=== PATIENT | male | born 1945 | race Caucasian/White ===

== ENCOUNTER 2023-03-20 09:03 | Observation (INO) | payer MEDICARE, OTHER, SELFPAY ==
[2023-03-20] VITALS (16 sets, daily range): BP systolic 124–162; BP diastolic 60–77; PULSE 59–66; RESP 16–36; TEMP 36.7–37.2; O2SAT 91–98; BMI 28.3
[2023-03-20 09:41] LABS: Add Manual Diff / Slide Review NO; Basophils Absolute Auto 0 /uL (0-100); Basophils Percent Auto 0.2 % (0-2); Eosinophils Absolute Auto 200 /uL (0-450); Eosinophils Percent Auto 1.9 % (2-4); Hemoglobin 14.2 g/dL (13.5-17.5); Lymphocytes Absolute Auto 1300 /uL (1100-4500); Lymphocytes Percent Auto 14.1 % (25-40); Mean Corpuscular HGB Conc 33.9 % (30-36); Mean Corpuscular Hemoglobin 31.3 PG (26-34); Mean Corpuscular Volume 92.3 fL (80-100); Monocytes Absolute Auto 900 /uL (0-900); Monocytes Percent Auto 9.9 % (3-14); Neutrophils Absolute Auto 6700 /uL (1500-7000); Neutrophils Percent Auto 73.9 % (50-75); Platelet Count 128 X10^3/uL (150-400); Red Blood Cell Count 4.55 X10^6/uL (4.5-5.9); Red Cell Distribution Width 14.5 % (11.6-14.8); White Blood Cell Count 9.1 X10^3/uL (4.5-11.0)
[2023-03-20 09:51] LABS: Alanine Aminotransferase 30 IU/L (<50); Albumin Globulin Ratio 1.4 (1.0-2.8); Alkaline Phosphatase 50 U/L (38-126); Aspartate Aminotransferase 24 IU/L (17-59); BUN Creatinine Ratio 18.6 (6-22); Bilirubin Total 1.8 mg/dL (0.2-1.3); Blood Urea Nitrogen 18 mg/dL (9-20); Calcium 9.3 mg/dL (8.4-10.2); Carbon Dioxide 31 mmol/L (22-32); Chloride 102 mmol/L (98-107); Estimated Glomerular Filt Rate > 60 mL/min (>60); Globulin 2.8 g/dL (1.7-4.1); Glucose 139 mg/dL (80-110); HEMOLYSIS < 15 (0-50); Lipase 53 U/L (23-300); Potassium 3.7 mmol/L (3.4-5.1); Sodium 139 mmol/L (137-145); Total Protein 6.8 g/dL (6.3-8.2)
--- NOTE | 2023-03-20 10:00 | ED_ITS ---
HPI - Abdominal Pain General Chief Complaint: Abdominal Pain Stated Complaint: R/low ABD pain/ sent by PCP Time Seen by Provider: 03/20/23 09:06 Source: patient Mode of arrival: Ambulatory History of Present Illness HPI narrative: 77-year-old male presents with right lower quadrant pain and nausea for the past few days. He states the symptoms have been gradually worsening and though nauseated he has not vomited and denies any obvious fever or shaking chills. His appetite seems to be relatively okay and he admits to having relatively regular soft bowel movements. He has worsening right lower quadrant pain that is worse when he moves and improves with rest. He denies obvious radiation of his pain and has no urinary complaints. He called his primary care provider and was instructed to present here for evaluation. He does have a pacemaker and is on Eliquis. He denies any prior surgeries on his abdomen Related Data Home Medications Medication Instructions Recorded Confirmed apixaban 5 mg tablet (Eliquis) 5 mg PO BID 03/20/23 03/20/23 aspirin 81 mg tablet,delayed 81 mg PO BEDTIME 03/20/23 03/20/23 release atorvastatin 40 mg tablet 40 mg PO BEDTIME 03/20/23 03/20/23 furosemide 20 mg tablet 20 mg PO DAILY 03/20/23 03/20/23 loratadine 10 mg tablet (Claritin) 10 mg PO BID 03/20/23 03/20/23 losartan 50 mg tablet 25 mg PO DAILY 03/20/23 03/20/23 methocarbamol 500 mg tablet 500 mg PO TID PRN Pain (Scale 03/20/23 03/20/23 Score 1-3) metoprolol succinate 50 mg 50 mg PO BID 03/20/23 03/20/23 tablet,extended release 24 hr multivit with minerals-iron 18 1 tab PO BEDTIME 03/20/23 03/20/23 mg-folic ac 400 mcg-vit K 25 mcg tablet (Adults Multivitamin) omega-3 fatty acids 1,000 mg PO DAILY 03/20/23 03/20/23 potassium citrate 10 mEq (1,080 10 meq PO BID 03/20/23 03/20/23 mg) tablet,extended release sotalol 80 mg tablet 80 mg PO BID 03/20/23 03/20/23 vitamin B complex (B 1 tab PO BEDTIME 03/20/23 03/20/23 Complex-Vitamin B12 tablet) Allergies Allergy/AdvReac Type Severity Reaction Status Date / Time carvedilol Allergy Mild Verified 03/20/23 09:17 Review of Systems Review of Systems Narrative: GENERAL: Denies chills, fatigue, malaise, fever, sweats. HEENT: Denies sinus pain, ear pain, sore throat, difficulty swallowing, dizziness. RESPIRATORY: Denies dyspnea, cough, wheezing, hemoptysis, sputum. CARDIOVASCULAR: Denies chest pain, palpitations, orthopnea, edema, GASTROINTESTINAL: See HPI : Denies dysuria, frequency, incontinence, hematuria, urinary retention. MUSCULOSKELETAL: denies weakness, joint pain, or bony pain SKIN: Denies rash, skin lesions, or other NEUROLOGIC: Denies weakness, headache, numbness, change in speech, confusion, seizures, incoordination. PSYCHIATRIC: No concerning psychosocial issues. 12 point review of systems is negative except for those stated above Patient History Social History household members: spouse Smoking Status: Never smoker alcohol intake: current Smoking Status: Never smoker alcohol intake frequency: 0-2 drinks per day Substance Use Type: does not use Exam Narrative Exam Narrative: GENERAL: [77] year old patient appears stated age. Well-developed patient, in mild distress. HEAD: Atraumatic. Normocephalic. EYES: Pupils equal round and reactive. Extraocular motions intact. No scleral icterus. No injection or drainage. ENT: Nose without bleeding, purulent drainage. Throat without erythema, tonsillar hypertrophy or exudate. Airway patent. NECK: Trachea midline. Non tender CARDIOVASCULAR: Regular rate and rhythm without murmurs, gallops, or rubs. RESPIRATORY: Clear to auscultation. Breath sounds equal bilaterally. No wheezes, rales, or rhonchi. GASTROINTESTINAL: Abdomen soft, tender with guarding in the right lower quadrant, negative heel tap, psoas, negative Rovsing's., nondistended. Patient examined while standing, no evidence of inguinal hernia EXTREMITIES: No edema or joint tenderness. BACK: Nontender without deformity or crepitance. No flank tenderness. NEURO: AOx3. SKIN: No rash or erythema of visible areas Initial Vital Signs Initial Vital Signs: Vital Signs Temperature 98.6 F 03/20/23 09:11 Pulse Rate 65 03/20/23 09:11 Respiratory Rate 18 03/20/23 09:11 Blood Pressure 154/67 H 03/20/23 09:11 Pulse Oximetry 98 03/20/23 09:11 Oxygen Delivery Method Room Air 03/20/23 09:11 Course Orders Ordered: Acetaminophen (Acetaminophen 325 Mg Tablet) 650 mg PO Q6H PRN PRN Reason: Fever/Mild Pain (1-3) Atorvastatin Calcium (Atorvastatin 20 Mg Tablet) 40 mg PO BEDTIME [facility] Last Admin: 03/20/23 20:56 Dose: 40 mg Documented By: AT Furosemide (Furosemide 20 Mg Tablet) 20 mg PO DAILY [facility] Last Admin: 03/20/23 17:14 Dose: 20 mg Documented By: BV Hydromorphone HCl (Hydromorphone 0.5 Mg Inj) 0.5 mg IV Q4H PRN PRN Reason: Pain, Moderate (4-6) Piperacillin Sod/Tazobactam (Sod 3.375 gm/ Sodium Chloride) 100 mls @ 25 mls/hr IV Q8H [facility] Last Infusion: 03/21/23 04:18 Dose: 0 mls/hr Documented By: Admin: 03/21/23 00:17 Dose: 25 mls/hr Documented By: AT Loratadine (Loratadine 10 Mg Tablet) 10 mg PO BID [facility] Last Admin: 03/20/23 20:57 Dose: 10 mg Documented By: AT Losartan Potassium (Losartan 50 Mg Tablet) 25 mg PO DAILY [facility] Melatonin (Melatonin 3 Mg Tablet) 6 mg PO BEDTIME PRN PRN Reason: Insomnia Methocarbamol (Methocarbamol 500 Mg Tablet) 500 mg PO TID PRN PRN Reason: Pain (Scale Score 1-3) Metoprolol Succinate (Metoprolol Er 50 Mg Tablet) 50 mg PO BID [facility] Last Admin: 03/20/23 20:56 Dose: 50 mg Documented By: AT Naloxone HCl (Naloxone 0.4 Mg/Ml Vial) 0.2 mg IV Q2MIN PRN PRN Reason: Opiate Reversal Ondansetron HCl (Ondansetron 4 Mg Odt) 4 mg PO NOW PRN PRN Reason: Nausea And Vomiting Ondansetron HCl (Ondansetron 4 Mg/2 Ml Inj) 4 mg IV NOW PRN PRN Reason: Nausea And Vomiting Oxycodone HCl (Oxycodone Ir 5 Mg Tablet) 5 mg PO Q4HR PRN PRN Reason: Pain, Moderate (4-6) Polyethylene Glycol (Polyethylene Glycol 3350 17 Gm Powd.Pack) 17 gm PO DAILY PRN PRN Reason: Constipation Potassium Chloride (Potassium Chloride 10 Meq Tab) 10 meq PO BID [facility] Last Admin: 03/20/23 20:24 Dose: Not Given Documented By: AT Sennosides (Sennosides 8.6 Mg Tablet) 8.6 mg PO BID PRN PRN Reason: Constipation Sotalol HCl (Sotalol 80 Mg Tablet) 80 mg PO BID [facility] Last Admin: 03/20/23 20:56 Dose: 80 mg Documented By: AT Discontinued Medications Piperacillin Sod/Tazobactam (Sod 4.5 gm/ Sodium Chloride) 100 mls @ 200 mls/hr IV NOW ONE Stop: 03/20/23 11:58 Last Infusion: 03/20/23 13:07 Dose: 0 mls/hr Documented By: Admin: 03/20/23 12:16 Dose: 200 mls/hr Documented By: SPF Piperacillin Sod/Tazobactam (Sod 3.375 gm/ Sodium Chloride) 100 mls @ 25 mls/hr IV Q8H [facility] Last Infusion: 03/20/23 21:26 Dose: 0 mls/hr Documented By: Admin: 03/20/23 17:15 Dose: 25 mls/hr Documented By: BV Magnesium Sulfate (Magnesium Sulfate) 2 gm in 50 mls @ 25 mls/hr IV NOW ONE Stop: 03/20/23 16:08 Last Admin: 03/20/23 14:46 Dose: 25 mls/hr Documented By: BV Co-signed By: MM Piperacillin Sod/Tazobactam (Sod 4.5 gm/ Sodium Chloride) 100 mls @ 25 mls/hr IV Q8H [facility] Vital Signs Vital signs: Vital Signs - 8 hr 03/20/23 09:11 03/20/23 09:34 03/20/23 09:35 Temperature 98.6 F Pulse Rate 65 61 Respiratory Rate 18 Blood Pressure 154/67 H 149/68 H Pulse Oximetry 98 91 Oxygen Delivery Method Room Air 03/20/23 09:35 03/20/23 10:00 03/20/23 10:01 Temperature Pulse Rate 62 60 Respiratory Rate 27 H Blood Pressure 130/60 Pulse Oximetry 93 96 Oxygen Delivery Method 03/20/23 10:01 03/20/23 10:30 03/20/23 10:30 Temperature Pulse Rate 60 60 Respiratory Rate 29 H 29 H Blood Pressure 135/63 Pulse Oximetry 97 97 Oxygen Delivery Method 03/20/23 11:00 03/20/23 11:00 Temperature Pulse Rate 60 Respiratory Rate 26 H Blood Pressure 139/65 Pulse Oximetry 95 Oxygen Delivery Method MDM - Abdominal Pain Lab Data 03/21/23 04:59 03/21/23 04:59 Labs: Lab Results 03/20/23 03/20/23 03/20/23 Range/Units 09:30 09:30 09:30 WBC 9.1 (4.5-11.0) X10^3/uL RBC 4.55 (4.5-5.9) X10^6/uL Hgb 14.2 (13.5-17.5) g/dL Hct 42.0 (41-53) % MCV 92.3 (80-100) fL MCH 31.3 (26-34) PG MCHC 33.9 (30-36) % RDW 14.5 (11.6-14.8) % Plt Count 128 L (150-400) X10^3/uL Neut % (Auto) 73.9 (50-75) % Lymph % (Auto) 14.1 L (25-40) % [place] % (Auto) 9.9 (3-14) % Eos % (Auto) 1.9 L (2-4) % Baso % (Auto) 0.2 (0-2) % Neut # (Auto) 6700 (2264-1118) /uL Lymph # (Auto) 1300 (3422-8272) /uL [place] # (Auto) 900 (0-900) /uL Eos # (Auto) 200 (0-450) /uL Baso # (Auto) 0 (0-100) /uL Sodium 139 (137-145) mmol/L Potassium 3.7 (3.4-5.1) mmol/L Chloride 102 (98-107) mmol/L Carbon Dioxide 31 (22-32) mmol/L BUN 18 (9-20) mg/dL Creatinine 0.97 (0.66-1.25) mg/dL Estimated GFR > 60 (>60) mL/min BUN/Creatinine Ratio 18.6 (6-22) Glucose 139 H (80-110) mg/dL Calcium 9.3 (8.4-10.2) mg/dL Magnesium 1.8 (1.6-2.3) mg/dL Total Bilirubin 1.8 H (0.2-1.3) mg/dL AST 24 (17-59) IU/L ALT 30 (<50) IU/L Alkaline Phosphatase 50 (38-126) U/L Total Protein 6.8 (6.3-8.2) g/dL Albumin 4.0 (3.5-5.0) g/dL Globulin 2.8 (1.7-4.1) g/dL Albumin/Globulin Ratio 1.4 (1.0-2.8) Lipase 53 (23-300) U/L Point of care testing: Urine Dip Bedside Urine Glucose Negative Bedside Urine Bilirubin - Negative Bedside Urine Ketone - Negative Urine Specific [place] 1.010 Bedside Urine Occult Blood - Negative Bedside Urine pH 6.5 Bedside Urine Protein - Negative Bedside Urine Urobilinogen - Negative Bedside Urine Nitrite - Negative Bedside Urine Leukocytes - Negative Esterase MDM Narrative Medical decision making narrative: CC: 77-year-old male with right lower quadrant pain and nausea Complicating co-morbidities: Age, pacemaker, anticoagulation Data collected from: Patient Medical records reviewed: Prior notes reviewed in our EMR Differential considered, but not limited to: Appendicitis versus diverticulitis versus kidney stone versus other Exam documented above, pertinent findings include: Heart rate regular, lungs clear, abdomen soft, exquisitely tender in the right lower quadrant with guarding and minimal rebound Lab Test results independently reviewed as above. Pertinent findings: No leukocytosis or left shift, no signs of anemia, primary electrolytes and renal function within normal limits Independently reviewed EKG as above Imaging studies independently reviewed: IV contrasted CT of the abdomen and pelvis has findings consistent with acute appendicitis including inflammatory changes and a small amount of free fluid without evidence of abscess or perforation. There are appendicoliths noted Consultations: Dr. Kapadia (general surgery) request patient be admitted to the hospitalist service given medical history including the use of anticoagulants. Likely will go to the OR tomorrow. Hospitalist (Dr. Persaud) happy to accept Treatments: fluids, Zosyn Patient is hemodynamically stable, no signs of sepsis, abscess, perforation with findings of appendicitis requires hospitalization for medical stabilization and likely surgical intervention. Patient understands and agrees with the diagnosis and plan Discharge Plan Departure Patient Disposition: Admitted As Inpatient Clinical Impression: Acute appendicitis Admit Date/Time: 03/20/23 12:35 Admit Provider: Dave Persaud
--- NOTE | 2023-03-20 10:09 | DI.CT.S_ITS ---
PROCEDURE: CT ABDOMEN PELVIS W CON INDICATIONS: severe RLQ pain w/nausea, local guarding TECHNIQUE: After the administration of intravenous contrast, axial sections acquired from the lung bases to the pubic symphysis. Coronal and sagittal reformats were performed. For radiation dose reduction, the following was used: automated exposure control, adjustment of mA and/or kV according to patient size. COMPARISON: None. FINDINGS: Image quality: Excellent. Lung bases: Unremarkable. Heart: Heart is enlarged. Partially visualized pacemaker wires. ABDOMEN: Liver: Liver is decreased in attenuation, consistent with hepatic steatosis.. Gallbladder: Contracted with gallstones. No pericholecystic fluid. Biliary ducts: Unremarkable. Pancreas: Unremarkable. Spleen: Unremarkable. Adrenal Glands: Unremarkable. Kidneys and Ureters: Bilateral renal cortical scarring. Left renal cyst. No hydronephrosis or nephrolithiasis.. Stomach and Bowel: Stomach, small bowel loops, and colon are unremarkable. Diverticulosis without evidence of acute diverticulitis. Dilated appendix measuring up to 1.8 cm with wall thickening and significant surrounding inflammatory changes. A small appendicoliths is noted. There is wall thickening inflammation of the adjacent cecum. Peritoneum: Fat stranding and free fluid within the right lower quadrant extending into the pelvis and the right inguinal hernia. No organized fluid collections are seen. No extraluminal gas. Ventral Wall: No hernias. Abdominal Nodes: No retroperitoneal or mesenteric adenopathy by size criteria. Vessels: Aorta and inferior vena cava are normal in size. Atherosclerotic vascular calcifications. PELVIS: Pelvic Organs: Coarse calcifications within the prostate which is otherwise normal in size. Bladder: Unremarkable. Pelvic Nodes: No enlarged lymph nodes. Miscellaneous: Right inguinal hernia with inflammatory changes from adjacent appendicitis.. Bones: Degenerative changes of the spine. Right hip arthroplasty. IMPRESSION: 1. Findings consistent with acute appendicitis. Significant surrounding inflammatory changes and small free fluid. No organized fluid collections are seen. No extraluminal gas. Wall thickening of the adjacent cecum is likely reactive secondary to adjacent inflammatory changes 2. Diverticulosis without evidence of acute diverticulitis. 3. Cholelithiasis without evidence of acute cholecystitis. 4. Cardiomegaly. Dictated by: Lamont Tapia M.D. on 03/20/2023 at 11:43 Approved by: Lamont Tapia M.D. on 03/20/2023 at 11:51
[2023-03-20] MEDS: PIPERACILLIN/TAZO 4.5 GM in SODIUM CHLORIDE 0.9% 100 ML IV (12:16)
[2023-03-20 14:04] LABS: Magnesium 1.8 mg/dL (1.6-2.3)
[2023-03-20] MEDS: MAGNESIUM SULFATE 2 GM/50 ML PIGGYBACK IV (14:46)
--- NOTE | 2023-03-20 16:05 | PM.HP.1 ---
History of Present Illness History of Present Illness Date Patient Seen: 03/20/23 Time Patient Seen: 16:20 Chief complaint: R/low ABD pain/ sent by PCP Narrative: Yonatan Resendiz is a 77yo M with PMH of A-fib on eliquis, HTN, HLD and pacemaker who presents with lower quadrant abd pain and found to have acute appendicitis. Patient notes a few days of increasing lower abdominal pain which progressed to nausea and vomiting. Pain is worse at a 9/10 right lower quadrant, but radiates to his umbilicus. Seen in the ED and CT scan confirmed acute appendicitis. Dr. Kapadia general surgery consulted and will take for surgery tomorrow. Patient denies any shortness a breath, chest pain, diarrhea or lower extremity edema. He took all of his home meds including Eliquis this morning. [facility] Social History household members: spouse Smoking Status: Never smoker alcohol intake: current Meds Home Medications and Allergies Home Medications Medication Instructions Recorded Confirmed Type apixaban 5 mg tablet (Eliquis) 5 mg PO BID 03/20/23 03/20/23 History aspirin 81 mg tablet,delayed 81 mg PO BEDTIME 03/20/23 03/20/23 History release atorvastatin 40 mg tablet 40 mg PO BEDTIME 03/20/23 03/20/23 History furosemide 20 mg tablet 20 mg PO DAILY 03/20/23 03/20/23 History loratadine 10 mg tablet (Claritin) 10 mg PO BID 03/20/23 03/20/23 History losartan 50 mg tablet 25 mg PO DAILY 03/20/23 03/20/23 History methocarbamol 500 mg tablet 500 mg PO TID PRN Pain (Scale 03/20/23 03/20/23 History Score 1-3) metoprolol succinate 50 mg 50 mg PO BID 03/20/23 03/20/23 History tablet,extended release 24 hr multivit with minerals-iron 18 1 tab PO BEDTIME 03/20/23 03/20/23 History mg-folic ac 400 mcg-vit K 25 mcg tablet (Adults Multivitamin) omega-3 fatty acids 1,000 mg PO DAILY 03/20/23 03/20/23 History potassium citrate 10 mEq (1,080 10 meq PO BID 03/20/23 03/20/23 History mg) tablet,extended release sotalol 80 mg tablet 80 mg PO BID 03/20/23 03/20/23 History vitamin B complex (B 1 tab PO BEDTIME 03/20/23 03/20/23 History Complex-Vitamin B12 tablet) Allergies Allergy/AdvReac Type Severity Reaction Status Date / Time carvedilol Allergy Mild Verified 03/20/23 09:17 Review of Systems Review of Systems Narrative: All other systems reviewed with the patient and are negative unless otherwise stated. Exam Vital Signs (past 8 hours): - 03/20/23 09:11 03/20/23 09:34 03/20/23 09:35 Temperature 98.6 F Pulse Rate 65 61 Respiratory Rate 18 Blood Pressure 154/67 H 149/68 H Pulse Oximetry 98 91 Oxygen Delivery Method Room Air Oxygen Flow Rate 03/20/23 09:35 03/20/23 10:00 03/20/23 10:01 Temperature Pulse Rate 62 60 Respiratory Rate 27 H Blood Pressure 130/60 Pulse Oximetry 93 96 Oxygen Delivery Method Oxygen Flow Rate 03/20/23 10:01 03/20/23 10:30 03/20/23 10:30 Temperature Pulse Rate 60 60 Respiratory Rate 29 H 29 H Blood Pressure 135/63 Pulse Oximetry 97 97 Oxygen Delivery Method Oxygen Flow Rate 03/20/23 11:00 03/20/23 11:00 03/20/23 11:30 Temperature Pulse Rate 60 60 Respiratory Rate 26 H 35 H Blood Pressure 139/65 Pulse Oximetry 95 97 Oxygen Delivery Method Oxygen Flow Rate 03/20/23 12:00 03/20/23 12:20 03/20/23 12:20 Temperature Pulse Rate 59 L 60 Respiratory Rate 29 H 28 H Blood Pressure 162/76 H Pulse Oximetry 97 98 Oxygen Delivery Method Oxygen Flow Rate 03/20/23 12:33 03/20/23 12:34 03/20/23 12:34 Temperature Pulse Rate 66 64 Respiratory Rate 28 H 36 H Blood Pressure 161/77 H Pulse Oximetry 98 Oxygen Delivery Method Oxygen Flow Rate 03/20/23 13:00 03/20/23 13:00 03/20/23 13:15 Temperature 98.1 F Pulse Rate 60 62 Respiratory Rate 32 H 22 Blood Pressure 145/69 H 153/74 H Pulse Oximetry 95 97 Oxygen Delivery Method Oxygen Flow Rate 0 Oxygen Delivery Method Room Air Oxygen Flow Rate 0 Narrative Exam Narrative: GEN: no acute distress HEENT: moist mucous membranes, PERRL NECK: trachea midline, no JVD CV: regular rate and rhythm, no murmurs PULM: clear bilaterally ABD: soft, tender in lower quadrants, nondistended, no organomegaly EXT: warm and well perfused with no edema NEURO: awake, alert, oriented, no focal deficits Objective Labs 03/20/23 09:30 03/20/23 09:30 Labs: Laboratory Results - last 24 hr 03/20/23 03/20/23 03/20/23 09:30 09:30 09:30 WBC 9.1 RBC 4.55 Hgb 14.2 Hct 42.0 MCV 92.3 MCH 31.3 MCHC 33.9 RDW 14.5 Plt Count 128 L Neut % (Auto) 73.9 Lymph % (Auto) 14.1 L [place] % (Auto) 9.9 Eos % (Auto) 1.9 L Baso % (Auto) 0.2 Neut # (Auto) 6700 Lymph # (Auto) 1300 [place] # (Auto) 900 Eos # (Auto) 200 Baso # (Auto) 0 Sodium 139 Potassium 3.7 Chloride 102 Carbon Dioxide 31 BUN 18 Creatinine 0.97 Estimated GFR > 60 BUN/Creatinine Ratio 18.6 Glucose 139 H Calcium 9.3 Magnesium 1.8 Total Bilirubin 1.8 H AST 24 ALT 30 Alkaline Phosphatase 50 Total Protein 6.8 Albumin 4.0 Globulin 2.8 Albumin/Globulin Ratio 1.4 Lipase 53 Assessment & Plan Assessment & Plan narrative: # acute appendicitis -CT abdomen with dilated appendix to 1.8 cm with surrounding inflammation -general surgery consulted -will take for surgery tomorrow -hold home aspirin and Eliquis -continue Zosyn -pain control and antiemetics as needed # permanent atrial fibrillation s/p pacemaker -continue sotalol and metoprolol -holding Eliquis in anticipation of surgery # hypertension -continue home losartan # hyperlipidemia -continue home atorvastatin Code status is full code. DVT prophylaxis with SCDs. Proxy is Vlaerie. I have reviewed home meds and used all available resources to reconcile the home meds. Case discussed with ED physician/APC and patient will be admitted to the hospitalist service for further workup and management. Case discussed with Dr. Kapadia general surgeon. This patient will be admitted as inpatient and will require greater than 2 midnights of hospital time to treat acute appendicitis. Quality VTE Deep Vein Thrombosis/Pulmonary Embolism Present on Admission: No
[2023-03-20] MEDS: FUROSEMIDE 20 MG TABLET PO (17:14)
[2023-03-20] MEDS: PIPERACILLIN/TAZO 3.375 GM in SODIUM CHLORIDE 0.9% 100 ML IV (17:15)
[2023-03-20] MEDS: ATORVASTATIN 20 MG TABLET 40 MG PO (20:56)
[2023-03-20] MEDS: SOTALOL 80 MG TABLET PO (20:56)
[2023-03-20] MEDS: METOPROLOL ER 50 MG TABLET PO (20:56)
[2023-03-20] MEDS: LORATADINE 10 MG TABLET PO (20:57)
[2023-03-21] VITALS (17 sets, daily range): BP systolic 104–144; BP diastolic 48–71; PULSE 57–64; RESP 13–18; TEMP 36.2–36.9; O2SAT 92–98; BMI 28.3
--- NOTE | 2023-03-21 | PATH_ITS ---
[facility] Accession Number: [id number] No. of containers..01 Tissue . 01 Material submitted: . appendix - APPENDIX . 01 Diagnosis: Appendix, Appendectomy: Acute appendicitis and periappendicitis. Organizing fat necrosis. [facility] 03/30/2023 1734 Local . 01 Electronically signed: . Marie Juárez MD, Pathologist NPI- [id number] . 01 Gross description: . The specimen is received in formalin labeled with the patient's name, , and appendix, and consists of a fragmented appendix reapproximated to measure 5.4 cm in length by approximately 1.0 cm in diameter with attached mesoappendix. The serosa is tucker to brown, roughened, and diffusely disrupted. The margin is inked blue. Sectioning reveals a lumen averaging 0.3 cm in diameter filled with a pale tucker, solid structure possibly consistent with lesion located in the distal tip segment measuring 1.7 x 0.5 x 0.5 cm. The fragment with the margin appears grossly uninvolved. Supervisor Frame Sample And Pattern sections are submitted as follows: A1: Margin and surgical sales representative margin and cross sections. A2-A4: Entire distal tip section from distal to proximal. ([id number]) /FRR 03/24/2023 0348 Local . 01 Pathologist provided ICD-10: K35.80 . 01 CPT . 787889 Specimen Comment: A courtesy copy of this report has been sent to [phone] Performed at: 01 [facility] [address] [place] [address] Suite [facility], [place], [place] [id number] MD Dung Rasmussen MD Phone: [phone]
[2023-03-21] MEDS: PIPERACILLIN/TAZO 3.375 GM in SODIUM CHLORIDE 0.9% 100 ML IV ×3 (00:17→17:19)
[2023-03-21 05:14] LABS: Add Manual Diff / Slide Review NO; Basophils Absolute Auto 0 /uL (0-100); Basophils Percent Auto 0.4 % (0-2); Eosinophils Absolute Auto 200 /uL (0-450); Eosinophils Percent Auto 2.4 % (2-4); Hemoglobin 13.1 g/dL (13.5-17.5); Lymphocytes Absolute Auto 1500 /uL (1100-4500); Lymphocytes Percent Auto 16.6 % (25-40); Mean Corpuscular HGB Conc 34.5 % (30-36); Mean Corpuscular Hemoglobin 31.4 PG (26-34); Mean Corpuscular Volume 90.9 fL (80-100); Monocytes Absolute Auto 1000 /uL (0-900); Monocytes Percent Auto 10.9 % (3-14); Neutrophils Absolute Auto 6500 /uL (1500-7000); Neutrophils Percent Auto 69.7 % (50-75); Platelet Count 118 X10^3/uL (150-400); Red Blood Cell Count 4.19 X10^6/uL (4.5-5.9); Red Cell Distribution Width 14.4 % (11.6-14.8); White Blood Cell Count 9.2 X10^3/uL (4.5-11.0)
[2023-03-21 05:20] LABS: BUN Creatinine Ratio 18.3 (6-22); Blood Urea Nitrogen 19 mg/dL (9-20); Calcium 8.5 mg/dL (8.4-10.2); Carbon Dioxide 29 mmol/L (22-32); Chloride 101 mmol/L (98-107); Estimated Glomerular Filt Rate > 60 mL/min (>60); Glucose 110 mg/dL (80-110); HEMOLYSIS < 15 (0-50); Potassium 3.7 mmol/L (3.4-5.1); Sodium 135 mmol/L (137-145)
[2023-03-21 05:25] LABS: Magnesium 2.1 mg/dL (1.6-2.3)
[2023-03-21] MEDS: LACTATED RINGERS 1,000 ML 42 ML IV ×2 (08:51→12:25)
--- NOTE | 2023-03-21 09:05 | PM.CN ---
History of Present Illness Consult details Chief complaint: R/low ABD pain/ sent by PCP Narrative: Valentino is a 77-year-old man who came to the emergency department yesterday with right lower quadrant pain. He first developed pain and nausea back on Wednesday and it got worse yesterday. He came in to the ER and a CT showed acute appendicitis with appendicoliths and right lower quadrant inflammation. He did take his last dose of Eliquis yesterday morning. He has not had any prior intra-abdominal surgery. He may have had a hernia repair as an infant. Meds Home Medications and Allergies Home Medications Medication Instructions Recorded Confirmed Type apixaban 5 mg tablet (Eliquis) 5 mg PO BID 03/20/23 03/20/23 History aspirin 81 mg tablet,delayed 81 mg PO BEDTIME 03/20/23 03/20/23 History release atorvastatin 40 mg tablet 40 mg PO BEDTIME 03/20/23 03/20/23 History furosemide 20 mg tablet 20 mg PO DAILY 03/20/23 03/20/23 History loratadine 10 mg tablet (Claritin) 10 mg PO BID 03/20/23 03/20/23 History losartan 50 mg tablet 25 mg PO DAILY 03/20/23 03/20/23 History methocarbamol 500 mg tablet 500 mg PO TID PRN Pain (Scale 03/20/23 03/20/23 History Score 1-3) metoprolol succinate 50 mg 50 mg PO BID 03/20/23 03/20/23 History tablet,extended release 24 hr multivit with minerals-iron 18 1 tab PO BEDTIME 03/20/23 03/20/23 History mg-folic ac 400 mcg-vit K 25 mcg tablet (Adults Multivitamin) omega-3 fatty acids 1,000 mg PO DAILY 03/20/23 03/20/23 History potassium citrate 10 mEq (1,080 10 meq PO BID 03/20/23 03/20/23 History mg) tablet,extended release sotalol 80 mg tablet 80 mg PO BID 03/20/23 03/20/23 History vitamin B complex (B 1 tab PO BEDTIME 03/20/23 03/20/23 History Complex-Vitamin B12 tablet) Allergies Allergy/AdvReac Type Severity Reaction Status Date / Time carvedilol Allergy Mild Verified 03/21/23 08:28 Exam Vital Signs (past 8 hours): - 03/21/23 06:11 03/21/23 08:48 03/21/23 08:00 Temperature 97.8 F 98.0 F 97.4 F L Pulse Rate 59 L 60 60 Respiratory Rate 18 16 17 Blood Pressure 123/59 L 133/64 141/71 H Pulse Oximetry 96 96 98 Oxygen Delivery Method Room Air Oxygen Flow Rate 0 0 Oxygen Delivery Method Room Air Oxygen Flow Rate 0 Narrative Exam Narrative: Tender to palpation at [facility] Objective Labs 03/21/23 04:59 03/21/23 04:59 Labs: Laboratory Results - last 24 hr 03/20/23 03/20/23 03/20/23 09:30 09:30 09:30 WBC 9.1 RBC 4.55 Hgb 14.2 Hct 42.0 MCV 92.3 MCH 31.3 MCHC 33.9 RDW 14.5 Plt Count 128 L Neut % (Auto) 73.9 Lymph % (Auto) 14.1 L [place] % (Auto) 9.9 Eos % (Auto) 1.9 L Baso % (Auto) 0.2 Neut # (Auto) 6700 Lymph # (Auto) 1300 [place] # (Auto) 900 Eos # (Auto) 200 Baso # (Auto) 0 Sodium 139 Potassium 3.7 Chloride 102 Carbon Dioxide 31 BUN 18 Creatinine 0.97 Estimated GFR > 60 BUN/Creatinine Ratio 18.6 Glucose 139 H Calcium 9.3 Magnesium 1.8 Total Bilirubin 1.8 H AST 24 ALT 30 Alkaline Phosphatase 50 Total Protein 6.8 Albumin 4.0 Globulin 2.8 Albumin/Globulin Ratio 1.4 Lipase 53 03/21/23 03/21/23 03/21/23 04:59 04:59 04:59 WBC 9.2 RBC 4.19 L Hgb 13.1 L Hct 38.0 L MCV 90.9 MCH 31.4 MCHC 34.5 RDW 14.4 Plt Count 118 L Neut % (Auto) 69.7 Lymph % (Auto) 16.6 L [place] % (Auto) 10.9 Eos % (Auto) 2.4 Baso % (Auto) 0.4 Neut # (Auto) 6500 Lymph # (Auto) 1500 [place] # (Auto) 1000 H Eos # (Auto) 200 Baso # (Auto) 0 Sodium 135 L Potassium 3.7 Chloride 101 Carbon Dioxide 29 BUN 19 Creatinine 1.04 Estimated GFR > 60 BUN/Creatinine Ratio 18.3 Glucose 110 Calcium 8.5 Magnesium 2.1 Total Bilirubin AST ALT Alkaline Phosphatase Total Protein Albumin Globulin Albumin/Globulin Ratio Lipase PFSH Social History household members: spouse Tobacco & Substance Use Smoking Status: Never smoker alcohol intake: current Assessment & Plan Assessment and plan (1) Acute appendicitis: Qualifiers: Acute appendicitis type: with localized peritonitis Appendicitis gangrene presence: without gangrene Appendicitis perforation presence: without perforation Appendicitis abscess presence: without abscess Qualified Code(s): K35.30 - Acute appendicitis with localized peritonitis, without perforation or gangrene Status: Acute Plan Valentino is a 77-year-old man with acute appendicitis. We reviewed the risks and benefits of laparoscopic appendectomy he would like to proceed. We discussed the possibility of having have a drain for few days if the inflammation is severe and the low possibility of needing convert to an open operation if the inflammation is particularly bad.
[2023-03-21] MEDS: BUPIVACAINE 0.5% (PF) 30 ML, EPINEPHrine 0.15 MG INJ (09:36)
--- NOTE | 2023-03-21 10:42 | P.OP_ITS ---
Operative Date/Time/Diagnoses Date of procedure: 03/21/23 Time of procedure: 10:42 Pre-op diagnosis: Acute appendicitis Post-op diagnosis: same Procedure & Clinicians Procedure: Laparoscopic appendectomy Same procedure as scheduled: Yes Surgeon: Dami Kapadia Anesthesia Type: General Operative Notes Procedure in detail: The patient was on IV antibiotics. The patient was brought to the operating room, placed on the table in the supine position and general endotracheal anesthesia was induced. A time-out was performed. The abdomen was prepped and draped in the usual fashion. After injection of local anesthetic a 1 cm infraumbilical incision was created with a 15 blade scalpel. The umbilical stalk was grasped with a Alisson clamp to elevate the abdominal wall. The infraumbilical midline fascia was cleared over 1 cm and the fascia was scored with cautery. The peritoneum was pierced with a Peon clamp. The José Luis port was placed and the abdomen was insufflated to 15 mmHg. The camera was inserted and there was no evidence of any injury from the entry. Next, 5 mm ports were placed in the suprapubic and left lower quadrant positions under direct vision. The patient was placed in Trendelenburg with the right-side elevated. There were rather dense adhesions of the cecum to the anterior abdominal wall which were bluntly taken down. We then started to mobilize the cecum and ascending colon from the retroperitoneal attachments. There was a retroperitoneal appendix and some purulent fluid was suctioned from around the appendix which appeared to be contained perforation. A window was created at the base of the appendix and the appendix was divided with a single firing of a blue load with the endo ANDRE stapler. The power saw was used to take down the mesoappendix. The perforation appeared to be at the midpoint of the appendix which did esse ntially disintegrated upon retraction. Fragments of the appendix were placed in a Endo-Catch bag. A small amount of fluid with suctioned from the base of the appendix and pelvis. A 19 round Victor M drain was brought in through the left lower quadrant incision and placed in the right pericolic gutter adjacent to the base of the appendix. The table was flattened and the terminal ileum and omentum were allowed to slide in over the appendiceal stump. Finally, the suprapubic port was removed under direct vision. The pneumoperitoneum was released and the José Luis port was removed followed by the Endo-Catch bag. Additional local was injected into the fascia and the infraumbilical incision was closed with 2 interrupted 2-0 Vicryl sutures. The skin incisions were closed with 4 Monocryl. Steri-Strips were applied followed by Band-Aids. EBL: 25 mL Specimen: Appendix Post-operative Condition: stable Disposition: PACU
--- NOTE | 2023-03-21 11:10 | PC.NURSE ---
Addendum entered by Laura Castillo R.N. 03/21/23 19:32: 95cc total for massimo drain this shift. patient ambulated hallway w/o problems. passing gas. orders to SL IVF. Addendum entered by Laura Castillo R.N. 03/21/23 11:22: 1120: Dr mcnally stopped by to speak w/ , quick update given. anticipate 1 more day/night. arrived to floor via bed, accompanied by Lore, LUNCH COOK. patient is wide awake, enjoying ice chips. offered ice pack for abd. 1135: patient/ requesting regular diet instead of clear liquids. msg sent to Dr Carvajal. clears for lunch, may have general diet for dinner. massimo drain: 45cc edwards colored drainage emptied, left to sx. patient sitting up in bed tolerating clear liquid diet. Original Note: 0800: NPO since midnight, a/o, ind w/ ADLs. mobility is great. pain is 2/10 at rest, improved a little since yesterday. 0845: left floor in bed for surgery. 1110: report from PACU. awaiting arrival to room, where spouse is patiently waiting. per report: a/o, 2/10 pain, 2 lap sites, 1 massimo drain to sx. IV metoprolol given by anesthesia - b/p 118/51, pulse 61. will have ice packs + post op vs machine ready for arrival. updated on above info.
--- NOTE | 2023-03-21 11:15 | PC.NURSE ---
late entry for 03/20/23 new admit from ED. 1200: a/o, voices needs. ind w/ mobility and ADLs. reports pain to RLQ 2/10. approx 6/10 w/ palpation. n/v for the past 2-3 days is what brought him into the ER. WBC 9.1, CT of abdomen indicates need for removal of appendix. hx of pacer, and R hip replacement in September,. general diet until midnight, and he will be NPO. meds reviewed w/ patient, dr srinivasan notified of patient's concerns w/ taking his own supply of some meds vs our supply. accompanied by his Valerie. they live on their 50 foot boat for several months out of the year, are currently moored at [facility], normally reside in [place]. 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 wifes phone number placed on white board in room. [phone]: zosyn infusing.
--- NOTE | 2023-03-21 12:06 | CM.DANOTE ---
DCP Assessment Note: Patient is a 77yo male here for acute appendicitis. Surgery with Kang on 03/21/23. PCP Dami Ferreira Payer Medicare and Marlon RAMIREZ reviewed EMR. CHILD PROTECTION SPECIALIST entered room and introduced self and role. Patient was sitting up eating a lemon Popsicle and appeared A/Ox4. Patient was accompanied by spouse Valerie ([phone]). Patient lives in [place] with normally but has been on a boat tour and is staying on their boat. Patient is active/independent at baseline but had hip surg in November. Has been using a walker/cane/walking stick since then. Patient drives. Patient and plan on staying in [place] in [place] for a few days. Patient reported Kang told him he would d/c tomorrow. reports either friends could drive them to their boat or they could order a cab. Plan: d/c back to boat when medically stable. Transport with friends or cab. Continue to follow as needed. ASHLEY Waters Discharge Planning/Care Management CM Discharge Assessment Start: 03/21/23 12:04 Freq: Status: Active Protocol: Document 03/21/23 12:04 (Rec: 03/21/23 12:06 [id number]) Discharge Planning Assessment Assigned Mixing Supervisor ASHLEY Elkins DPOA/Assigned Designee Name Valerie Resendiz (spouse) Contact Information [phone] Advance Directives? No History Provided By Patient,Family Member,Medical Record Prior Living Arrangements House Comment Currently staying on their boat Household Members spouse Type of transporation used prior to Drives own vehicle admit Independent with ADL's Yes Is patient alert and oriented? Yes DME Already Rented / Owned FWW / Walker,Cane Comment had hip surgery back in November owns a walker/cane. Uses a walking stick for long distances now Barriers to Discharge No Discharge Plan Home Transportation Arrangement cab or friend Whiteboard Updated in Patient Room with Yes name and ext. # of Mixing Supervisor Review Status In Process Next Review Type Continued Stay Review
[2023-03-21] MEDS: FUROSEMIDE 20 MG TABLET PO (12:24)
[2023-03-21] MEDS: LORATADINE 10 MG TABLET PO ×2 (12:32→20:38)
[2023-03-21] MEDS: POTASSIUM CHLORIDE 10 MEQ TAB PO (12:33)
--- NOTE | 2023-03-21 17:30 | PM.PN.1 ---
Subjective Subjective Interval history: Underwent appendectomy last night which went well. Now has drain in place. Gen surg wants to keep on abx for another day. Exam Vital Signs (past 8 hours): - 03/21/23 10:42 03/21/23 10:48 03/21/23 10:53 Temperature 98.4 F Pulse Rate 62 59 L 62 Respiratory Rate 13 16 15 Blood Pressure 104/54 L 104/48 L 105/58 L Pulse Oximetry 92 92 93 Oxygen Delivery Method Room Air Room Air Room Air Oxygen Flow Rate 03/21/23 10:58 03/21/23 11:09 03/21/23 11:20 Temperature 98.4 F 98.4 F 97.1 F L Pulse Rate 61 61 61 Respiratory Rate 14 14 17 Blood Pressure 114/56 L 118/58 L 122/53 L Pulse Oximetry 93 94 93 Oxygen Delivery Method Room Air Room Air Oxygen Flow Rate 0 03/21/23 12:32 03/21/23 12:00 03/21/23 13:13 Temperature Pulse Rate 60 60 57 L Respiratory Rate 16 17 Blood Pressure 123/63 123/63 125/63 Pulse Oximetry 96 93 Oxygen Delivery Method Oxygen Flow Rate 0 03/21/23 12:30 Temperature Pulse Rate 60 Respiratory Rate 17 Blood Pressure 131/64 Pulse Oximetry 95 Oxygen Delivery Method Oxygen Flow Rate 0 Oxygen Delivery Method Room Air Oxygen Flow Rate 0 Narrative Exam Narrative: GEN: no acute distress HEENT: moist mucous membranes, PERRL NECK: trachea midline, no JVD CV: regular rate and rhythm, no murmurs PULM: clear bilaterally ABD: soft, tender in lower quadrants, drain in place draining serosanguineous drainage, nondistended, no organomegaly EXT: warm and well perfused with no edema NEURO: awake, alert, oriented, no focal deficits Objective Labs 03/21/23 04:59 03/21/23 04:59 Labs: Laboratory Results - last 24 hr 03/21/23 03/21/23 03/21/23 04:59 04:59 04:59 WBC 9.2 RBC 4.19 L Hgb 13.1 L Hct 38.0 L MCV 90.9 MCH 31.4 MCHC 34.5 RDW 14.4 Plt Count 118 L Neut % (Auto) 69.7 Lymph % (Auto) 16.6 L [place] % (Auto) 10.9 Eos % (Auto) 2.4 Baso % (Auto) 0.4 Neut # (Auto) 6500 Lymph # (Auto) 1500 [place] # (Auto) 1000 H Eos # (Auto) 200 Baso # (Auto) 0 Sodium 135 L Potassium 3.7 Chloride 101 Carbon Dioxide 29 BUN 19 Creatinine 1.04 Estimated GFR > 60 BUN/Creatinine Ratio 18.3 Glucose 110 Calcium 8.5 Magnesium 2.1 PFSH Social History household members: spouse Smoking Status: Never smoker alcohol intake: current Assessment & Plan Assessment & Plan narrative: # acute appendicitis s/p appendectomy -CT abdomen with dilated appendix to 1.8 cm with surrounding inflammation -general surgery consulted -underwent surgery on 03/20 and has vale drain in place -hold home aspirin and Eliquis for now -continue Zosyn -pain control and antiemetics as needed # permanent atrial fibrillation s/p pacemaker -continue sotalol and metoprolol -holding Eliquis for now # hypertension -continue home losartan # hyperlipidemia -continue home atorvastatin Code status is full code. DVT prophylaxis with SCDs. Proxy is Valerie. I have reviewed home meds and used all available resources to reconcile the home meds. Case discussed with ED physician/APC and patient will be admitted to the hospitalist service for further workup and management. Case discussed with Dr. Kapadia general surgeon. Dispo: Home in 1-2 days per gen surg. Quality VTE Deep Vein Thrombosis/Pulmonary Embolism Present on Admission: No
[2023-03-21] MEDS: ATORVASTATIN 20 MG TABLET 40 MG PO (20:38)
[2023-03-21] MEDS: SODIUM CHLORIDE 0.9% FLUSH 10 ML IV (21:17)
--- NOTE | 2023-03-21 23:46 | PC.NURSE ---
Patient is alert and oriented. Breath sounds CTA with last RA sat recorded being 95%. HRR; has pacemaker. BP meds held as BP 121/52 and since just had surgery this a.m. and has been running lower not wanting to have it go to low; will reassess at 0100 with next vitals and give meds if more elevated and patient is in agreement. Denies nausea. BT present and is passing flatus. Denies pain but is tender and appears distended. Is voiding without dysuria but states he has been going in small amounts so instructed to use urinal tonight in order to assess further; does not feel as though he is retaining urine. Has been up walking in halls independently and appears steady on feet. Bandaid dressings to abdomen are CDI. Has massimo drain which is intact and compressed and surrounding dressing is CDI; drainage is sero-sanguinous. Has chronic tingling of toes and ball of feet bilaterally left > right but unchanged. Fall risk score is low.
[2023-03-22] MEDS: SODIUM CHLORIDE 0.9% FLUSH 10 ML IV ×2 (00:59→08:53)
[2023-03-22] MEDS: PIPERACILLIN/TAZO 3.375 GM in SODIUM CHLORIDE 0.9% 100 ML IV ×2 (00:59→08:53)
[2023-03-22] MEDS: SODIUM CHLORIDE 0.9% 250 ML 21 ML IV (00:59)
[2023-03-22 01:00] VITALS: BP 150/73; PULSE 71; RESP 18; TEMP 35.9; O2SAT 97
[2023-03-22 05:27] VITALS: BP 148/72; PULSE 65; RESP 16; TEMP 37; O2SAT 95
[2023-03-22 06:02] LABS: Add Manual Diff / Slide Review NO; Basophils Absolute Auto 0 /uL (0-100); Eosinophils Absolute Auto 0 /uL (0-450); Hematocrit 37.1 % (41-53); Hemoglobin 12.9 g/dL (13.5-17.5); Lymphocytes Absolute Auto 1000 /uL (1100-4500); Lymphocytes Percent Auto 7.6 % (25-40); Mean Corpuscular HGB Conc 34.8 % (30-36); Mean Corpuscular Hemoglobin 31.4 PG (26-34); Mean Corpuscular Volume 90.3 fL (80-100); Monocytes Absolute Auto 900 /uL (0-900); Monocytes Percent Auto 6.6 % (3-14); Neutrophils Absolute Auto 11300 /uL (1500-7000); Neutrophils Percent Auto 85.8 % (50-75); Platelet Count 129 X10^3/uL (150-400); Red Blood Cell Count 4.11 X10^6/uL (4.5-5.9); White Blood Cell Count 13.2 X10^3/uL (4.5-11.0)
[2023-03-22 06:09] LABS: Magnesium 2.1 mg/dL (1.6-2.3)
[2023-03-22 06:10] LABS: BUN Creatinine Ratio 20.7 (6-22); Blood Urea Nitrogen 19 mg/dL (9-20); Calcium 8.9 mg/dL (8.4-10.2); Carbon Dioxide 27 mmol/L (22-32); Chloride 101 mmol/L (98-107); Estimated Glomerular Filt Rate > 60 mL/min (>60); Glucose 150 mg/dL (80-110); HEMOLYSIS < 15 (0-50); Potassium 3.9 mmol/L (3.4-5.1); Sodium 135 mmol/L (137-145)
[2023-03-22 08:51] VITALS: BP 148/72; PULSE 65
[2023-03-22] MEDS: LORATADINE 10 MG TABLET PO (08:51)
[2023-03-22] MEDS: SOTALOL 80 MG TABLET PO (08:51)
[2023-03-22] MEDS: LOSARTAN 50 MG TABLET 25 MG PO (08:51)
[2023-03-22 08:52] VITALS: BP 148/72; PULSE 65
[2023-03-22] MEDS: METOPROLOL ER 50 MG TABLET PO (08:52)
[2023-03-22] MEDS: FUROSEMIDE 20 MG TABLET PO (08:52)
[2023-03-22 09:52] VITALS: BP 156/71; PULSE 63; RESP 18; TEMP 35.9; O2SAT 96
--- NOTE | 2023-03-22 11:02 | P.PN_ITS ---
Subjective Subjective Date Patient Seen: 03/22/23 Time Patient Seen: 11:02 Interval history: Feels well today. Tolerating a regular diet and passing flatus. Exam Vital Signs (past 8 hours): - 03/22/23 05:27 03/22/23 08:51 03/22/23 08:52 Temperature 98.6 F Pulse Rate 65 65 65 Respiratory Rate 16 Blood Pressure 148/72 H 148/72 H 148/72 H Pulse Oximetry 95 Oxygen Flow Rate 0 03/22/23 09:52 Temperature 96.6 F L Pulse Rate 63 Respiratory Rate 18 Blood Pressure 156/71 H Pulse Oximetry 96 Oxygen Flow Rate 0 Oxygen Delivery Method Room Air Oxygen Flow Rate 0 Narrative Exam Narrative: Drain output is serosanguineous Objective Labs 03/22/23 05:22 03/22/23 05:22 Labs: Laboratory Results - last 24 hr 03/22/23 03/22/23 03/22/23 05:22 05:22 05:22 WBC 13.2 H RBC 4.11 L Hgb 12.9 L Hct 37.1 L MCV 90.3 MCH 31.4 MCHC 34.8 RDW 14.0 Plt Count 129 L Neut % (Auto) 85.8 H Lymph % (Auto) 7.6 L [place] % (Auto) 6.6 Eos % (Auto) 0.0 L Baso % (Auto) 0.0 Neut # (Auto) 54360 H Lymph # (Auto) 1000 L [place] # (Auto) 900 Eos # (Auto) 0 Baso # (Auto) 0 Sodium 135 L Potassium 3.9 Chloride 101 Carbon Dioxide 27 BUN 19 Creatinine 0.92 Estimated GFR > 60 BUN/Creatinine Ratio 20.7 Glucose 150 H Calcium 8.9 Magnesium 2.1 PFSH Social History household members: spouse Smoking Status: Never smoker alcohol intake: current Assessment & Plan Assessment and plan (1) Acute appendicitis: Qualifiers: Acute appendicitis type: with localized peritonitis Appendicitis abscess presence: without abscess Appendicitis gangrene presence: without gangrene Appendicitis perforation presence: without perforation Qualified Code(s): K35.30 - Acute appendicitis with localized peritonitis, without perforation or gangrene Status: Acute Plan We will DC the drain today and discharge home He can follow up with his primary care provider in [place] or come back here for a follow-up visit in 2 weeks. Quality VTE Deep Vein Thrombosis/Pulmonary Embolism Present on Admission: No
--- NOTE | 2023-03-22 12:09 | CM.DPC ---
DCP Continued TAPING FOREMAN reviewed EMR. Per provider, if surgery clears him he can d/c today. TAPING FOREMAN entered room and reintroduced self and role. Patient reports his daughter drove up from [place] and can drive him back to the boat. Patient reports no other needs at this time. Plan: patient to d/c back to boat with daughter and . No needs identified at this time. CM team will continue to follow as needed. ASHLEY Waters
--- NOTE | 2023-03-22 15:36 | P.DS_ITS ---
History of Present Illness History of Present Illness Date Patient Seen: 03/20/23 Time Patient Seen: 16:20 Chief complaint: R/low ABD pain/ sent by PCP Narrative: Yonatan Resendiz is a 77yo M with PMH of A-fib on eliquis, HTN, HLD and pacemaker who presents with lower quadrant abd pain and found to have acute appendicitis. Patient notes a few days of increasing lower abdominal pain which progressed to nausea and vomiting. Pain is worse at a 9/10 right lower quadrant, but radiates to his umbilicus. Seen in the ED and CT scan confirmed acute appendicitis. Dr. Kapadia general surgery consulted and will take for surgery tomorrow. Patient denies any shortness a breath, chest pain, diarrhea or lower extremity edema. He took all of his home meds including Eliquis this morning. Discharge Providers Provider Date of admission: 03/20/23 12:35 Discharge Date: 03/22/23 Primary care physician: Dami Ferreira MD Consults: 03/20/23 12:31 Consult to General Surgery Stat Comment: Consulting Provider: Dami Kapadia Reason for consultation: acute appendicitis Has provider been notified: Yes Discharge provider: Dave Persaud DO Summary Hospital Course Discharge Diagnosis: # acute appendicitis s/p appendectomy -CT abdomen with dilated appendix to 1.8 cm with surrounding inflammation -general surgery consulted -underwent surgery on 03/20 and has vale drain in place, removed prior to dc -hold home aspirin and Eliquis for now, ok to restart per gen surg on 03/23 -continue Zosyn -pain control and antiemetics as needed # permanent atrial fibrillation s/p pacemaker -continue sotalol and metoprolol -holding Eliquis for now # hypertension -continue home losartan # hyperlipidemia -continue home atorvastatin Hospital Course: Admitted for acute appendicitis and underwent laproscopic appendectomy. Received Zosyn. Eliquis held for 2 days due to surgery, but ok to restart on 03/23. Discharged home feeling well and abd pain improving significantly. Exam Vital Signs (past 8 hours): - 03/22/23 08:51 03/22/23 08:52 03/22/23 09:52 Temperature 96.6 F L Pulse Rate 65 65 63 Respiratory Rate 18 Blood Pressure 148/72 H 148/72 H 156/71 H Pulse Oximetry 96 Oxygen Flow Rate 0 Oxygen Delivery Method Room Air Oxygen Flow Rate 0 Narrative Exam Narrative: GEN: no acute distress HEENT: moist mucous membranes, PERRL NECK: trachea midline, no JVD CV: regular rate and rhythm, no murmurs PULM: clear bilaterally ABD: soft, tender in lower quadrants, drain in place draining serosanguineous drainage, nondistended, no organomegaly EXT: warm and well perfused with no edema NEURO: awake, alert, oriented, no focal deficits Objective Labs 03/22/23 05:22 03/22/23 05:22 Labs: Laboratory Results - last 24 hr 03/22/23 03/22/23 03/22/23 05:22 05:22 05:22 WBC 13.2 H RBC 4.11 L Hgb 12.9 L Hct 37.1 L MCV 90.3 MCH 31.4 MCHC 34.8 RDW 14.0 Plt Count 129 L Neut % (Auto) 85.8 H Lymph % (Auto) 7.6 L [place] % (Auto) 6.6 Eos % (Auto) 0.0 L Baso % (Auto) 0.0 Neut # (Auto) 65755 H Lymph # (Auto) 1000 L [place] # (Auto) 900 Eos # (Auto) 0 Baso # (Auto) 0 Sodium 135 L Potassium 3.9 Chloride 101 Carbon Dioxide 27 BUN 19 Creatinine 0.92 Estimated GFR > 60 BUN/Creatinine Ratio 20.7 Glucose 150 H Calcium 8.9 Magnesium 2.1 PFSH Social History household members: spouse Smoking Status: Never smoker alcohol intake: current Discharge Plan Discharge Plan Patient Disposition: Home Provider Discharge Comment: Restart Eliquis tomorrow morning. No lifting greater than 20 lb for 2 weeks. Okay to remove the outer dressing and shower after 24 hours. Leave the Steri-Strips on until they start to peel off in 1-2 weeks. Contact [facility] at regarding follow-up. Discharge orders & Medications Prescriptions: Continued losartan 50 mg tablet 25 mg PO DAILY atorvastatin 40 mg tablet 40 mg PO BEDTIME metoprolol succinate 50 mg tablet extended release 24 hr 50 mg PO BID Rx Instructions: 50mg am/ 25mg hs sotalol 80 mg tablet 80 mg PO BID potassium citrate 10 mEq (1,080 mg) tablet extended release 10 meq PO BID Rx Instructions: 20meq am/ 10meq hs furosemide 20 mg tablet 20 mg PO DAILY Eliquis 5 mg tablet 5 mg PO BID aspirin 81 mg Tablet,Delayed Release (Dr/Ec) 81 mg PO BEDTIME vitamin B complex [B Complex-Vitamin B12] Tablet 1 tab PO BEDTIME loratadine [Claritin] 10 mg Tablet 10 mg PO BID omega-3 fatty acids Capsule 1,000 mg PO DAILY Adults Multivitamin 18 mg iron-400 mcg-25 mcg Tablet 1 tab PO BEDTIME methocarbamol 500 mg Tablet 500 mg PO TID PRN (Reason: Pain (Scale Score 1-3)) Follow up/Referrals: Dami Ferreira MD [Primary Care Provider] - 2 Weeks Visit Report/Discharge Packet Instructions: DI for an Appendectomy, DI for Laparoscopy, [facility]: Wound Care Stand Alone Forms: Patient Portal/API, Stroke Signs & Symptoms, Surgery Discharge Discharge Data Primary Care Provider: Dami Ferreira Attending Provider: Dave Persaud Admit Date/Time: 03/20/23 12:35 Discharges patient from system. Discharge Date/Time: 03/22/23 13:33 Quality VTE Deep Vein Thrombosis/Pulmonary Embolism Present on Admission: No
== END 2023-03-22 13:33 | disposition home or self-care (01) ==
LOC: ED 12:21 → AC 15:03
PROVIDERS: Surgery; Admitting Provider Student in an Organized Health Care Education/Training Program; Emergency Provider Emergency Medicine; PCP Family Medicine; Referring Provider Emergency Medicine; Visit Provider Student in an Organized Health Care Education/Training Program
PROC: 0DTJ4ZZ Resection of Appendix, Percutaneous Endoscopic Approach (ICD-10-PCS; CPT 44970; principal; 2023-03-21 09:00)
DX: K35.80 Unspecified acute appendicitis (principal); I48.21 Permanent atrial fibrillation
CPT/HCPCS: 44970; 36415; 74177; 80048; 80053; 81003; 83690; 83735; 85025; 93005; 96365; 96366; 99221; 99284; G0378; J0171; J0330; J1100; J2405; J2543; J2704; J3010; J3475; Q9967